=== PATIENT | female | born 1970 ===

== ENCOUNTER 2017-05-09 16:18 | Emergency (ER) | payer OTHER ==
[2017-05-09 16:24] VITALS: BP 156/87; PULSE 83; TEMP 98.7; BMI 34.5
[2017-05-09] MEDS ORDERED: CLINDAMYCIN IVPB 300 MG in DEXTROSE 5%-WATER - 48 ML IVPB ONE (17:28)
--- NOTE | 2017-05-09 17:36 | PDOC ---
History of Present Illness - General Chief Complaint: Abscess Boil Stated Complaint: BREAST PAIN Time Seen by Provider: 05/09/17 17:05 History Source: Patient Exam Limitations: No Limitations - History of Present Illness Initial Comments: 05/09/17 17:32 47-year-old female with no history of immunosuppression including diabetes presents with worsening right nipple wound for the past 4 days. Patient states initially started as an irritation aggressively has worsened with redness swelling and pain. Patient states no aggravating factors including change in soaps, topicals bras or manipulation to area. Patient states had a normal mammogram this past November and denies previous infection to area. Patient does state has had multiple skin abscesses to her groin, buttock and armpits over the years But denies history of MRSA. Patient denies nipple discharge, dimpling , or radiation of pain. Timing/Duration: getting worse Severity: moderate Associated Symptoms: reports: denies symptoms Past History - Past Medical History Allergies/Adverse Reactions: Allergies Allergy/AdvReac Type Severity Reaction Status Date / Time No Known Allergies Allergy Verified 05/09/17 16:24 Home Medications: Ambulatory Orders Cephalexin [Keflex] 500 mg PO TID #21 capsule 05/09/17 Levothyroxine [Synthroid -] 112 mcg PO DAILY 05/09/17 Omeprazole 40 mg PO DAILY 05/09/17 Sertraline HCl [Zoloft] 100 mg PO DAILY 05/09/17 Sulfamethoxazole/Trimethoprim [Bactrim Ds -] 1 tab PO BID #14 tablet 05/09/17 Anemia: Yes HTN: Yes Psychiatric Problems: Yes (ANXIETY) Thyroid Disease: Yes - Surgical History Cholecystectomy: Yes - Psycho/Social/Smoking Cessation Hx Suicidal Ideation: No Smoking History: Current every day smoker Number of Cigarettes Smoked Daily: 10 Information on smoking cessation initiated: No Patient Lives Alone: No Lives with/in: spouse/SO Review of Systems - Review of Systems Able to Perform ROS?: Yes Constitutional: No: Symptoms Reported HEENTM: No: Symptoms Reported Respiratory: No: Symptoms reported Cardiac (ROS): No: Symptoms Reported ABD/GI: No: Symptoms Reported Musculoskeletal: No: Symptoms Reported Integumentary: Yes: Erythema, Lumps Neurological: No: Symptoms reported Endocrine: No: Symptoms Reported Hematologic/Lymphatic: No: Symptoms Reported *Physical Exam - Vital Signs Last Vital Signs Temp Pulse Resp BP Pulse Ox 98.7 F 83 18 156/87 99 05/09/17 16:20 05/09/17 16:20 05/09/17 16:20 05/09/17 16:20 05/09/17 16:20 - Physical Exam General Appearance: Yes: Nourished, Appropriately Dressed. No: Apparent Distress HEENT: positive: EOMI, JOON. negative: Pale Conjunctivae Neck: positive: Supple Respiratory/Chest: positive: Lungs Clear, Normal Breath Sounds. negative: Respiratory Distress, Accessory Muscle Use Cardiovascular: positive: Regular Rhythm, Regular Rate. negative: Murmur Gastrointestinal/Abdominal: positive: Soft. negative: Tenderness Extremity: positive: Normal Capillary Refill. negative: Pedal Edema Integumentary: positive: Warm, Swelling (mild edema and erythema to right nipple and surrounding area ( approx 2cm) above nipple. no discharge but noted excoriated scab to lower nipple. No palpable fluctulance. noted semifirm tender area approx 2cm in diameter palpated behind the nipple/ in breast tissue) Neurologic: positive: Motor Strength 5/5 (ambulatory) ED Treatment Course - LABORATORY CBC & Chemistry Diagram: 05/09/17 17:30 05/09/17 17:30 - RADIOLOGY Radiology Studies Ordered: Category Date Time Status BREAST US RIGHT LIMITED [US] Stat Ultrasound 05/09/17 17:19 Ordered Medical Decision Making - Medical Decision Making 05/09/17 17:45 Pt with progressively worsening redness, tenderness, and swelling over right nipple. Pt concerning for abscess/cellulitis. Pt ordered for septic workup, breast ultrasound, and iv clindamycin. Wound cxwas obtained from the minimal amount of serosangious fluid that was expressed from nipple 05/09/17 17:54 Laboratory Tests 05/09/17 17:30 WBC 15.0 H Hgb 11.8 Hct 36.7 Plt Count 283 05/09/17 18:45 Laboratory Tests 05/09/17 05/09/17 05/09/17 17:30 17:30 17:30 WBC 15.0 H Hgb 11.8 Hct 36.7 Neutrophils % 72.4 Sodium 139 Potassium 3.6 Chloride 102 Carbon Dioxide 25 Anion Gap 12 BUN 14 Creatinine 0.8 Creat Clearance w eGFR > 60 Random Glucose 139 H Lactic Acid 2.0 Calcium 9.1 Total Bilirubin 0.6 AST 15 ALT 25 Alkaline Phosphatase 120 H Serum , Qual 05/09/17 17:30 WBC Hgb Hct Neutrophils % Sodium Potassium Chloride Carbon Dioxide Anion Gap BUN Creatinine Creat Clearance w eGFR Random Glucose Lactic Acid Calcium Total Bilirubin AST ALT Alkaline Phosphatase Serum , Qual Negative 05/09/17 18:46 Patient will borderline elevated lactic acid and elevated white count. Patient concerning fall cellulitis. Patient will be consults it with hospitalist for admission I will consult the hospitalist for admission. *DC/Admit/Observation/Transfer Diagnosis at time of Disposition: Breast abscess - Discharge Dispostion Disposition: HOME Condition at time of disposition: Stable - Prescriptions Prescriptions: Sulfamethoxazole/Trimethoprim [Bactrim Ds -] 1 tab PO BID #14 tablet Cephalexin [Keflex] 500 mg PO TID #21 capsule - Referrals Referrals: STAFF,NOT ON [Primary Care Provider] - - Patient Instructions Printed Discharge Instructions: DI for Skin Abscess Additional Instructions: As per our conversation, you'll strongly advised to follow-up with a breast surgeon. You adamantly refused to be in the emergency department as I await for our surgeon to return my call regarding your right breast abscess. Please continue taking antibiotics as prescribed. Return back to the emergency department for severe/persistent/worsening symptoms , drainage, fever or red streaks from your breast.
[2017-05-09] MEDS ORDERED: CLINDAMYCIN PHOSPHATE 600 MG/4 ML VIAL ONE (17:40)
[2017-05-09 17:43] LABS: BASOPHIL 1.3 % (0-2.0); EOSINOPHIL 1.4 % (0-4.5); MCH 21.1 pg (25.7-33.7); MCHC 32.1 g/dl (32.0-36.0); MEAN CELL VOLUME 65.7 fl (80-96); MEAN PLT VOLUME 9.1 fl (7.5-11.1); NEUTROPHILS 72.4 % (42.8-82.8); PLATELET COUNT 283 K/MM3 (134-434); RDW 18.2 % (11.6-15.6)
[2017-05-09 18:16] LABS: ALBUMIN 3.5 g/dl (3.4-5.0); ANION GAP 12 (8-16); CALCIUM 9.1 mg/dL (8.5-10.1); CO2 25 mmol/L (21-32); CREATININE 0.8 mg/dL (0.55-1.02); GLUCOSE,RANDOM 139 mg/dL (74-106); SGOT/AST 15 U/L (15-37); SGPT/ALT 25 U/L (12-78)
[2017-05-09 18:18] LABS: ALK PHOS 120 U/L (45-117); BILIRUBIN,TOTAL 0.6 mg/dL (0.2-1.0); TOT PROT 7.7 g/dl (6.4-8.2)
--- NOTE | 2017-05-09 18:34 | PDOC ---
*Physical Exam - Vital Signs Last Vital Signs Temp Pulse Resp BP Pulse Ox 98.7 F 83 18 156/87 99 05/09/17 16:20 05/09/17 16:20 05/09/17 16:20 05/09/17 16:20 05/09/17 16:20 Heart Score/ECG Review #1 ECG reviewed & interpreted by me at: 18:34 General ECG Interpretation: Sinus Rhythm, Normal Rate, Normal Intervals, No acute ischemic changes ED Treatment Course - LABORATORY CBC & Chemistry Diagram: 05/09/17 17:30 05/09/17 17:30 - ADDITIONAL ORDERS Additional order review: Laboratory Results 05/09/17 05/09/17 05/09/17 17:30 17:30 17:30 Sodium 139 Potassium 3.6 Chloride 102 Carbon Dioxide 25 Anion Gap 12 BUN 14 Creatinine 0.8 Creat Clearance w eGFR > 60 Random Glucose 139 H Lactic Acid 2.0 Calcium 9.1 Total Bilirubin 0.6 AST 15 ALT 25 Alkaline Phosphatase 120 H Total Protein 7.7 Albumin 3.5 Serum , Qual Negative 05/09/17 17:30 RBC 5.59 H MCV 65.7 L MCHC 32.1 RDW 18.2 H MPV 9.1 Neutrophils % 72.4 Lymphocytes % 20.5 Monocytes % 4.4 Eosinophils % 1.4 Basophils % 1.3 - Medications Given in the ED: ED Medications Discontinued Medications Generic Name Dose Route Start Last Admin Trade Name Freq PRN Reason Stop Dose Admin Clindamycin Phosphate 300 mg/ 50 mls @ 100 mls/hr 05/09/17 17:28 05/09/17 17:47 Dextrose IVPB 05/09/17 17:57 100 mls/hr ONCE ONE Administration Medical Decision Making - Medical Decision Making 05/09/17 18:34 47 yo F presenting to the ER with acute swelling of her breast and skin erythema No fevers Pt told it is safest for her to stay overnight in the hospital Pt does not want to do this She is heading back home tomorrow She understands the importance of follow up with PMD and breast specialist for further imaging Pt seen by Midlevel Provider under my direct supervision Pt interviewed and examined Ancillary studies reviewed I agree with plan as outlined by Midlevel Provider *DC/Admit/Observation/Transfer Diagnosis at time of Disposition: Breast abscess - Discharge Dispostion Disposition: HOME Condition at time of disposition: Stable - Prescriptions Prescriptions: Sulfamethoxazole/Trimethoprim [Bactrim Ds -] 1 tab PO BID #14 tablet Cephalexin [Keflex] 500 mg PO TID #21 capsule - Referrals Referrals: STAFF,NOT ON [Primary Care Provider] - - Patient Instructions Printed Discharge Instructions: DI for Skin Abscess Additional Instructions: As per our conversation, you'll strongly advised to follow-up with a breast surgeon. You adamantly refused to be in the emergency department as I await for our surgeon to return my call regarding your right breast abscess. Please continue taking antibiotics as prescribed. Return back to the emergency department for severe/persistent/worsening symptoms , drainage, fever or red streaks from your breast.
[2017-05-09 19:36] LABS: HYPOCHROMIA 2+; MACROCYTOSIS FEW; MICROCYTOSIS 1+; OVALOCYTE 1+; PLATELET ESTIMATE ADEQUATE (NORMAL); POIKILOCYTOSIS 1+; POLYCHROMASIA 1+; TARGET CELLS RARE
--- NOTE | 2017-05-09 20:35 | PDOC ---
History of Present Illness - General Chief Complaint: Abscess Boil Stated Complaint: BREAST PAIN Time Seen by Provider: 05/09/17 17:05 - History of Present Illness Initial Comments: 05/09/17 20:33 Patient was advised to wait in the emergency department until I get a surgical consult with patient states she lives in [place] and wouldn't follow-up with any of our consulting physicians. She states she will see her physician within 48 hours and will definitely see a surgeon this week. Past History - Past Medical History Allergies/Adverse Reactions: Allergies Allergy/AdvReac Type Severity Reaction Status Date / Time No Known Allergies Allergy Verified 05/09/17 16:24 Home Medications: Ambulatory Orders Levothyroxine [Synthroid -] 112 mcg PO DAILY 05/09/17 Omeprazole 40 mg PO DAILY 05/09/17 Sertraline HCl [Zoloft] 100 mg PO DAILY 05/09/17 Anemia: Yes HTN: Yes Psychiatric Problems: Yes (ANXIETY) Thyroid Disease: Yes - Surgical History Cholecystectomy: Yes - Psycho/Social/Smoking Cessation Hx Suicidal Ideation: No Smoking History: Current every day smoker Number of Cigarettes Smoked Daily: 10 Information on smoking cessation initiated: No Patient Lives Alone: No Lives with/in: spouse/SO *Physical Exam - Vital Signs Last Vital Signs Temp Pulse Resp BP Pulse Ox 98.7 F 83 18 156/87 99 05/09/17 16:20 05/09/17 16:20 05/09/17 16:20 05/09/17 16:20 05/09/17 16:20 ED Treatment Course - LABORATORY CBC & Chemistry Diagram: 05/09/17 17:30 05/09/17 17:30 - ADDITIONAL ORDERS Additional order review: Laboratory Results 05/09/17 05/09/17 05/09/17 17:30 17:30 17:30 Sodium 139 Potassium 3.6 Chloride 102 Carbon Dioxide 25 Anion Gap 12 BUN 14 Creatinine 0.8 Creat Clearance w eGFR > 60 Random Glucose 139 H Lactic Acid 2.0 Calcium 9.1 Total Bilirubin 0.6 AST 15 ALT 25 Alkaline Phosphatase 120 H Total Protein 7.7 Albumin 3.5 Serum , Qual Negative 05/09/17 17:30 RBC 5.59 H MCV 65.7 L MCHC 32.1 RDW 18.2 H MPV 9.1 Neutrophils % 72.4 Lymphocytes % 20.5 Monocytes % 4.4 Eosinophils % 1.4 Basophils % 1.3 - RADIOLOGY Radiograph Interpretation: 05/09/17 20:32 Ultrasound right breast: There is a hypo-necrotic avascular retroareolar nodule measuring 0.7 x 0.7 x 1.0 cm. Appearance suggests a solid nodule. Stairs approximately 8 mm from the cutaneous surface. Subareolar heterogeneous nodule measuring 1.3 x 1.1 x 1.3 cm to 3 mm from the cutaneous surface. This demonstrates both soft tissue and hypo-echo carotid possibly fluid components and may be an abscess. There is vascularity at the peripheral although no internal vascularity is demonstrated. - Medications Given in the ED: ED Medications Discontinued Medications Generic Name Dose Route Start Last Admin Trade Name Freq PRN Reason Stop Dose Admin Clindamycin Phosphate 300 mg/ 50 mls @ 100 mls/hr 05/09/17 17:28 05/09/17 17:47 Dextrose IVPB 05/09/17 17:57 100 mls/hr ONCE ONE Administration *DC/Admit/Observation/Transfer Diagnosis at time of Disposition: Abscess of breast - Discharge Dispostion Disposition: HOME Condition at time of disposition: Stable Admit: No - Patient Instructions Printed Discharge Instructions: DI for Skin Abscess Additional Instructions: As per our conversation, you'll strongly advised to follow-up with a breast surgeon. You adamantly refused to be in the emergency department as I await for our surgeon to return my call regarding your right breast abscess. Please continue taking antibiotics as prescribed. Return back to the emergency department for severe/persistent/worsening symptoms , drainage, fever or red streaks from your breast.
--- NOTE | 2017-05-11 16:37 | EKG ---
Test Reason : Blood Pressure : / mmHG Vent. Rate : 062 BPM Atrial Rate : 062 BPM P-R Int : 150 ms QRS Dur : 096 ms QT Int : 404 ms P-R-T Axes : 046 032 064 degrees QTc Int : 410 ms NORMAL SINUS RHYTHM NORMAL ECG NO PREVIOUS ECGS AVAILABLE Confirmed by SANJUANA NAYAK MD ([id number]) on 05/11/2017 4:36:25 PM Referred By: Confirmed By:SANJUANA NAYAK MD
== END 2017-05-09 20:47 | disposition home or self-care (01) ==
LOC: JER 16:18
DX: N61.1 Abscess of the breast and nipple (principal); I10 Essential (primary) hypertension; F41.9 Anxiety disorder, unspecified; D64.9 Anemia, unspecified
CPT/HCPCS: 36415; 76642-TC-RT; 80053; 83605; 84703; 85025; 87040; 87070; 87205; 93005; 93010; 99283-25